=== PATIENT | male | born 1985 | race African-American/Black ===

== ENCOUNTER 2016-04-04 16:02 | Emergency (ER) | payer OTHER ==
[2016-04-04 16:21] VITALS: BP 164/90; PULSE 91; TEMP 97.9; BMI 33.2
[2016-04-04] MEDS ORDERED: DIPHTH,PERTUSS(ACELL),TET 0.5 ML DISP.SYRIN IM ONE (16:56)
--- NOTE | 2016-04-04 16:57 | PDOC ---
History of Present Illness - General History Source: Patient Exam Limitations: No Limitations - History of Present Illness Initial Comments: 04/04/16 16:59 Chief Complaint: Left thumb laceration History of present illness: The patient is a 30 year old male, who presents to the emergency department with a laceration on his left thumb. He states that he was in the kitchen cooking when he cut his thumb with the knife. He reports minimal bleeding from the area and minimal pain. He denies any other lacerations. Past medical history: None reported Allergies: None Past surgical history: None reported Social history: Social alcohol use. Cigar use. No drug use. <Ignacio Feliciano - Last Filed: 04/04/16 16:59> <Jamey Barger - Last Filed: 04/04/16 17:09> - General Chief Complaint: Laceration Stated Complaint: LEFT THUMB LACERATION Time Seen by Provider: 04/04/16 16:16 Past History <Ignacio Feliciano - Last Filed: 04/04/16 16:59> - Past Medical History Other medical history: DENIES - Psycho/Social/Smoking Cessation Hx Anxiety: No Suicidal Ideation: No Smoking History: Current some day smoker Have you smoked in the past 12 months: Yes Number of Cigarettes Smoked Daily: 0 Cigars Per Day: 1 Information on smoking cessation initiated: Yes 'Breaking Loose' booklet given: 04/04/16 Hx Alcohol Use: Yes (SOCIAL) Drug/Substance Use Hx: No Substance Use Type: None <Jamey Barger - Last Filed: 04/04/16 17:09> - Past Medical History Allergies/Adverse Reactions: Allergies Allergy/AdvReac Type Severity Reaction Status Date / Time No Known Allergies Allergy Verified 04/04/16 16:03 Home Medications: Ambulatory Orders NK [No Known Home Medication] 04/04/16 Review of Systems - Review of Systems Able to Perform ROS?: Yes Comments:: 04/04/16 16:59 CONSTITUTIONAL: Absent: fever, no chills, no fatigue EYES: Absent: visual changes ENT: Absent: ear pain, no sore throat CARDIOVASCULAR: Absent: chest pain, no palpitations RESPIRATORY: Absent: cough, no SOB GI: Absent: abdominal pain, no nausea, no vomiting, no constipation, no diarrhea GENITOURINARY: Absent: dysuria, no frequency, no hematuria MUSKULOSKELETAL: Absent: back pain, no arthralgia, no myalgia EXTREMITIES: +Left thumb laceration. SKIN: Absent: rash NEURO: Absent: headache <Ignacio Feliciano - Last Filed: 04/04/16 16:59> *Physical Exam - Vital Signs Last Vital Signs Temp Pulse Resp BP Pulse Ox 97.9 F 91 H 20 164/90 97 04/04/16 16:03 04/04/16 16:03 04/04/16 16:03 04/04/16 16:03 04/04/16 16:03 - Physical Exam Comments: 04/04/16 17:01 GENERAL: Well-appearing, well-nourished. No apparent distress. HEENT: Normocephalic, atraumatic. PERRL, EOM intact. CARDIOVASCULAR: Normal S1, S2. Regular rate and rhythm. PULMONARY: Clear to auscultation bilaterally. ABDOMEN: Soft, non-distended, non-tender. EXTREMITIES: Normal ROM in all four extremities. No gross deformities. SKIN: Warm, dry. No rash NEUROLOGICAL: No focal neurological deficits. <Ignacio Feliciano - Last Filed: 04/04/16 16:59> - Vital Signs Last Vital Signs Temp Pulse Resp BP Pulse Ox 97.9 F 91 H 20 164/90 97 04/04/16 16:03 04/04/16 16:03 04/04/16 16:03 04/04/16 16:03 04/04/16 16:03 <Jamey Barger - Last Filed: 04/04/16 17:09> Medical Decision Making - Medical Decision Making 04/04/16 17:02 Patient with 1 cm laceration over the volar aspect of the thumb, area of the mid metacarpal. No distal numbness or tingling, or demonstrable sensory deficits to pinprick or 2-point. Full flexion of both joints against resistance. Procedure note: Repair of laceration Skin was prepped with Betadine. Wound scrubbed and irrigated with normal saline. Explored. Superficial, confined to skin and subcutaneous tissue, no deep structures or puncture was evident. Hemostasis with pressure. Wound closed with 4-0 nylon interrupted skin sutures 3 with good edge approximation. Bacitracin, 4 x 4, and Anette applied as a dressing. Wound care instructions. Sutures out in one week. Return sooner if any sign of infection. Ambulatory with no pain or other discomfort upon discharge to follow-up as directed <Jamey Barger - Last Filed: 04/04/16 17:09> *DC/Admit/Observation/Transfer - Attestations Scribe Attestion: 04/04/16 17:02 Documentation prepared by Ignacio Feliciano, acting as biomedical engineering technologist for Jamey Miranda MD <Ignacio Feliciano - Last Filed: 04/04/16 16:59> - Discharge Dispostion Admit: No <Jamey Barger - Last Filed: 04/04/16 17:09> Diagnosis at time of Disposition: Finger laceration Qualifiers: Encounter type: initial encounter Qualified Code(s): S61.219A - Laceration without foreign body of unspecified finger without damage to nail, initial encounter - Discharge Dispostion Disposition: HOME Condition at time of disposition: Improved - Patient Instructions Printed Discharge Instructions: DI for Laceration Repair -- Simple Additional Instructions: He check immediately if sign of infection. Otherwise suture removal in one week. Keep clean and dry. Keep dressed with bacitracin and covered.
== END 2016-04-04 17:10 | disposition home or self-care (01) ==
LOC: FER 16:02
PROC: 3E0234Z Introduction of Serum, Toxoid and Vaccine into Muscle, Percutaneous Approach (ICD-10-PCS; principal; 2016-04-04)
PROC: 0HQGXZZ Repair Left Hand Skin, External Approach (ICD-10-PCS; 2016-04-04)
DX: S61.012A Laceration without foreign body of left thumb without damage to nail, initial encounter (principal); W26.0XXA Contact with knife, initial encounter; Y93.89 Activity, other specified; Y92.9 Unspecified place or not applicable
CPT/HCPCS: 90715; 99284-25

== ENCOUNTER 2016-04-17 09:23 | Emergency (ER) | payer OTHER ==
--- NOTE | 2016-04-17 09:37 | PDOC ---
Suture Removal/Wound Check HPI - History of Present Illness Chief Complaint: Suture/Staple Removal(Here) Stated Complaint: SUTURE REMOVAL Time Seen by Provider: 04/17/16 09:31 History Source: Yes: Patient Exam Limitations: Yes: No Limitations - Onset of Previous Treatment Comment:: 04/17/16 09:33 30 y/o male with no significan PMHx presents to the ED for suture removal from a laceration to his left hand/thumb sustained 13 days ago. The patient denies pain, fever, limited ROM. He is currently without complaints. Past History - Travel Traveled outside of the country in the last 30 days: No Close contact w/someone who was outside of country & ill: No - Past Medical History Allergies/Adverse Reactions: Allergies No Known Allergies Allergy (Verified 04/17/16 09:24) Home Medications: Ambulatory Orders NK [No Known Home Medication] 04/04/16 - Immunization History Tetanus Status: Unknown - Social History Smoking Status: Current some day smoker Number of Ciarettes Per Day: 0 Cigars Per Day: 1 Suture Removal/Wound Check PE - Physical Exam Laceration/Wound Check Symptoms: reports: Improved. denies: Pain, Fever, Chills , Redness, Discharge, Bleeding, Numbness, Weakness, Persistent, Worsening, Resolved Current Severity Level: None Maximum Severity Level: None Location of Laceration/Wound: left: Finger Comments: 04/17/16 09:34 There is a healing 1.5 cm wound to the volar surface of the left thumb near the thenar eminence. The sutures are in place and there are 3 present. The wound has no erythema, exudates or appearance of infection. Upon removal of the sutures, the epidermis is not completely approximated. Steri-strips were placed. Medical Decision Making - Medical Decision Making 04/17/16 09:36 30 y/o male with healing laceration to the left thumb--sutures removed and steri -strips placed. Wond care was discussed with the patient. Will discharge home; follow-up with PCP as needed. *DC/Admit/Observation/Transfer Diagnosis at time of Disposition: Finger laceration, Visit for suture removal - Discharge Dispostion Disposition: HOME Condition at time of disposition: Stable Admit: No - Patient Instructions Printed Discharge Instructions: DI for Suture Removal Additional Instructions: Keep steri-strips in place until they fall off. Return to the ED if the wound appears red, swollen, purulent drainage or any other symptoms.
[2016-04-17 09:38] VITALS: BP 144/91; PULSE 86; TEMP 98.4; BMI 32.5
== END 2016-04-17 09:54 | disposition home or self-care (01) ==
LOC: FER 09:23
DX: Z48.02 Encounter for removal of sutures (principal)
CPT/HCPCS: 99282-25